=== PATIENT | male | born 1965 | race Caucasian/White ===

== ENCOUNTER 2018-11-13 23:51 | Inpatient (IN) | payer BC ==
[~2018-11-13] VITALS: Ht 170.2 cm; Wt 100.0 kg
--- NOTE | ~2018-11-13 | OP ---
PATIENT NAME: DANISH COOK MEDICAL RECORD: [id number] :63 LOCATION:D.M2 D.2128 ADMISSION DATE:11/14/18 SURGEON: DUNCAN PHILLIPS MD DATE OF OPERATION: 11/15/2018 PROCEDURES: 1. PTCA stent RCA. 2. Left heart catheterization. 3. Selective coronary angiography. 4. Left ventriculogram. INDICATION: Angina, coronary artery disease, non-Q-wave myocardial infarction, cardiomyopathy. PROCEDURE IN DETAIL: After informed consent was obtained and after a detailed description of the risks, benefits as well as alternative therapies, the patient elected to proceed with angiogram and angioplasty. The right femoral area was prepped and draped in normal sterile fashion. Right femoral artery was cannulated via modified Seldinger technique with placement of 6-Upper Sorbian sheath. All catheters exchanged through this sheath. FINDINGS: Left ventriculogram was performed in standard 30-degree REYES view, reveals global hypokinesis throughout all segments. Overall ejection fraction 25%. SELECTIVE CORONARY ANGIOGRAPHY: 1. Left main has no significant angiographic disease. 2. Left anterior descending has 80% stenosis in the mid vessel. This is followed by a 100% occlusion of the LAD. The diagonal has previously placed stent. This is widely patent. 3. Left circumflex has previously placed stents, these are widely patent; however, there is total occlusion of the circumflex after the previously placed stents. 4. Right coronary artery is by far his largest vessel, has 80% to 90% stenosis times 2 in the proximal and mid vessel. PTCA STENT OF THE RCA: Stents used were 3.5 x mm Integrity and 3.0 x 15 mm Integrity. Result was 0% residual stenosis. OVERALL IMPRESSION: Successful percutaneous transluminal coronary angioplasty stent of the right coronary artery going from 2 areas of greater than 80% initial stenosis to 0% residual. PLAN: PTCA stent of the LAD and circumflex in the near future. TRANSINT:[id number] Voice Confirmation ID: [id number] DOCUMENT ID: [id number] OPERATIVE REPORT [id number] DANISH COOK JEFFREY MD at 1457 CC: [id number] DICTATION DATE: 11/15/18 1027 CROWN BUFFER: 11/15/18 1242 DIS IN 11/15/18 [place] [id number]
--- NOTE | ~2018-11-13 | EC ---
PATIENT:DANISH COOK DATE OF SERVICE: 11/14/18 SEX: M MEDICAL RECORD: [id number] DATE OF : 63 LOCATION:D.M2 D.212 AGE OF PATIENT: 52 ADMISSION DATE: 11/14/18 REFERRING PHYSICIAN: INTERPRETING PHYSICIAN: DUNCAN PRITCHETT MD ECHOCARDIOGRAM REPORT ECHO CHARGES 4 ECHO COMPLETE Date: 11/14/18 CLINICAL DIAGNOSIS: IN ECHOCARDIOGRAPHIC MEASUREMENTS (adult normal given) AC root (d.<3.7cm) 3.4 cm LV Septum d (<1.2 cm> 1.5 cm Valve Excursion 2.0 cm LV Septum (systole) 2.2 cm Left Atria (s.<4.0cm> 4.5 cm LVPW d(<1.2cm) 1.4 cm RV (d.<2.3cm) 3.4 cm LVPW (sytole) 1.9 cm LV diastole(<5.6CM) 5.8 cm MV E-F(>70mm/sec) cm LV systole 3.9 cm LVOT Diameter 2.0 cm MV exc.(>10mm) cm Est.ejection fraction (50-75%) % DOPPLER: LVIT cm/sec A 27.0 cm/sec E 92.0 cm/sec LA cm/sec RVSP 64.0 mmHg LVOT 75.0 cm/sec AOP1/2T m/s Asc. Ao 125 cm/sec RVOT 52.0 cm/sec RA cm/sec PA 77.0 cm/sec AV Gradient Peak 6.3 mmHg AV Mean 2.7 mmHg AV Area 2.4 cm MV Gradient Peak 3.6 mmHg MV Mean 1.2 mmHg MV Area cm COMMENTS: Floor Molder: [facility] Attendant: 1 Dr. Pritchett TAPE# PACS Pericardial Effusion N DATE OF SERVICE: 11/14/2018 ROCEDURE: Echocardiogram. FINDINGS: 1. Left ventricular chamber size is mildly dilated. Left ventricular systolic function is significantly reduced, overall ejection fraction 30%. 2. Left atrium, right atrium, and right ventricle chamber sizes are as well mildly dilated. 3. Valvular structures have normal structure and motion. ECHOCARDIOGRAM REPORT [id number] DANISH COOK 4. Doppler interrogation reveals mild mitral regurgitation, moderate tricuspid regurgitation, no other valvular insufficiency or stenosis. Pulmonary systolic pressure is elevated estimated 64 mmHg. 5. No evidence of pericardial effusion or left ventricular thrombus. TRANSINT:[id number] Voice Confirmation ID: [id number] DOCUMENT ID: [id number] DUNCAN PRITCHETT MD at 1457 CC: [id number] DICTATION DATE: 11/15/18901 SCHOOL TRAFFIC GUARD: 11/15/18 1018 DIS IN 11/15/18 [place] [id number] [place] [address]
--- NOTE | ~2018-11-13 | HEMODYNAMI ---
PATIENT:DANISH COOK MEDICAL RECORD: [id number] : 63 LOCATION:D.MS Melvin2231 ADMISSION DATE: 11/14/18 Generatedon:11/15/201810:24 Patient name: DANISH COOK Patient #: [id number] SSN: : 1965 Date of study: 11/15/2018 Page: Of Hemodynamic Procedure Report Patient Data Patient Demographics Procedure consent was obtained First Name: DANISH Gender: Male Last Name: JOEY : 1965 Middle Initial: T Age: 52 year(s) Patient #: [id number] Race: Additional ID: [id number] Contact details [address]: [address] [place] [address] State: [place] City: [place] Zip code: [address] Past Medical History History of disease Date Diagnosis Comments CAD CHF Allergies: No known allergies Admission Admission Data Admission Date: 11/14/2018 Admission Time: 0:55 Admit Source: Emergency department Room #: D.2231 Procedure Procedure Types Cath Procedure Diagnostic Procedure C [facility] w/Coronaries PCI Procedure Coronary Stent Coronary Stent Initial Procedure Description Procedure Date Procedure Date: 11/15/2018 Procedure Start Time: 10:07 Procedure End Time: 10:23 Procedure Staff Name Function John Pritchett MD Performing Physician Rosibel Husain RT Monitor Dariusz Quiles RT Scrub Flavio Soria RN Nurse Procedure Data Cath Procedure Fluoroscopy Diagnostic fluoroscopy Total fluoroscopy Time: 3.2 time: 3.2 min min Diagnostic fluoroscopy Total fluoroscopy dose: 802 dose: 802 mGy mGy Contrast Material Contrast Material Type Amount (ml) Isovue 300 97 Entry Location Entry Primary Successful Side Size Upsize Upsize Entry Closure Succes sful Closure Location (Fr) 1 (Fr) 2 (Fr) Remarks Device Remarks Femoral Right 5 Fr 6 Fr Exoseal artery Short Estimated blood loss: 10 ml Diagnostic catheters Device Type Used For End Catheter Placement MULTIPACK Pigtail 5 Fr LV Angiography catheter MULTIPACK JL 4.0 5Fr Left Coronary catheter Angiography MULTIPACK 3DRC 5Fr Right Coronary catheter Angiography Procedure Complications No complications Procedure Medications Medication Administration Route Dosage Oxygen etCO2 Nasal cannula 2 l/min Heparin Flush Bag added to field 2 bags (1000units/500ml NS) 0.9% NaCl I.V. 100 ml/hr Lidocaine 2% added to field 20 Fentanyl I.V. 50 mcg Versed I.V. 1 mg Fentanyl I.V. 50 mcg Versed I.V. 1 mg Heparin Bolus I.V. 4000 units Plavix P.O. 75 mg Hemodynamics Rest Heart Rate: 82 (bpm) Snapshots Pre Cath Intra NCS Post Cath Vital Signs Time Heart Resp SPO2 etCO2 NIBP (mmHg) Rhythm Pain Sedation Rate (ipm) (%) (mmHg) Status Level (bpm) 10:01:20 79 17 96 37 150/105(124) NSR 0 (11) 10(A) , No pain 10:05:40 81 16 96 31 146/92(113) NSR 0 (11) 10(A) , No pain 10:09:58 84 17 94 0 140/102(117) NSR 0 (11) 9(A) , No pain 10:14:14 76 17 92 0 151/97(124) NSR 0 (11) 9(A) , No pain 10:18:30 85 17 91 15.1 146/101(124) NSR 0 (11) 9(A) , No pain 10:22:48 87 16 95 18.9 148/100(142) NSR 0 (11) 9(A) , No pain Medications Time Medication Route Dose Verified Delivered Reason Notes Effectiveness by by 9:59:37 Oxygen etCO2 2 John Muniz Per physician Nasal l/min Shreyas Soria RN cannula 9:59:46 Heparin Flush added 2 John Muniz used for Bag to bags Shreyas Soria RN procedure (1000units/500ml field NS) 9:59:54 0.9% NaCl I.V. 100 Johnsharri Muniz Per physician ml/hr Shreyas Soria RN 10:00:03 Lidocaine 2% added 20ml John Muniz used for to vial Shreyas Soria product safety and standards engineer field 10:06:43 Fentanyl I.V. 50 John Muniz for sedation mcg Shreyas Soria RN 10:06:49 Versed I.V. 1 mg John Muniz for sedation Shreyas Soria RN 10:15:16 Fentanyl I.V. 50 John Muniz for sedation mcg Shreyas Soria RN 10:15:21 Versed I.V. 1 mg John Muniz for sedation Shreyas Soria RN 10:16:54 Heparin Bolus I.V. 4000 John Muniz for units Shreyas Soria RN anticoagulation 10:22:20 Plavix P.O. 75 mg John Muniz for Shreyas Soria RN antiplatelet therapy Procedure Log Time Note 9:37:35 Informed consent obtained and on chart 9:37:38 Admit Source: Emergency department 9:37:52 Diagnostic Cath status Elective 9:37:53 Flavio Soria RN sent for patient. Start room use. 9:37:55 Time tracking: Call back (After hours or weekends) 9:37:59 Plan of Care:Hemodynamics will remain stable., Cardiac rhythm will remain stable., Comfort level will be maintained., Respiratory function will remain adequate., Patient/ family verbilizes understanding of procedure., Procedure tolerated without complication., Recovers from procedure without complications.. 9:50:41 Patient received from ICU to CCL 1 Alert and oriented. Tansferred to table in Supine position. 9:50:42 Warm blankets applied, and álvaro hugger turned on for patient comfort. 9:50:42 Correct patient and procedure confirmed by team. 9:50:43 ECG and BP/O2 sat monitors applied to patient. 9:50:44 Full Disclosure recording started 9:59:37 Oxygen 2 l/min etCO2 Nasal cannula was administered by Flavio Soria RN; Per physician; 9:59:46 Heparin Flush Bag (1000units/500ml NS) 2 bags added to field was administered by Flavio Soria RN; used for procedure; 9:59:54 0.9% NaCl 100 ml/hr I.V. was administered by Flavio Soria RN; Per physician; 10:00:03 Lidocaine 2% 20ml vial added to field was administered by Flavio Soria RN; used for procedure; 10:00:05 Vital chart was started 10:02:04 Rhythm: sinus rhythm 10:02:07 Baseline sample Acquired. 10:02:14 H&P Date Dictated: 11/15/2018 Within 30 days and on chart.. 10:02:16 Pre-procedure instructions explained to patient. 10:02:16 Pre-op teaching completed and patient verbalized understanding. 10:02:18 Family in patients room. 10:02:20 Patient NPO since Midnight. 10:02:26 Patient allergic to No known allergies 10:02:28 Is the patient allergic to Iodine/contrast media? No. 10:02:31 Is patient on blood thinner?Yes 10:02:33 ACC The patient was administered the following blood thiners within the last 24 hours: ACCPlavix 10:02:35 Patient diabetic? No. 10:02:39 Previous problem with sedation/anesthesia? No ? 10:02:40 Snore? Yes 10:02:41 Sleep apnea? No 10:02:42 Deviated septum? No 10:02:43 Opens mouth fully? Yes 10:02:43 Sticks out tongue? Yes 10:02:45 Airway obstruction? No ? 10:02:49 Dentures? Yes OUT 10:03:42 Pre procedure: right dorsailis pedis pulse 2+ Normal; easily identifiable; not easily obliterated 10:03:44 Patient pain scale 0/10 ?. 10:03:49 IV patent on arrival in right antecubital with 0.9% NaCl at [facility]. 10:03:51 Lab results completed and on chart. 10:03:58 Right groin area was prepped with chlora-prep and draped in sterile fashion 10:04:00 Alarms reviewed by R. N. 10:04:00 Sharps counted by scrub and verified by R.N. 10:04:03 Use device set Femoral Dx 10:04:04 ACIST Syringe (59506) opened to sterile field. 10:04:05 Bag Decanter (2002) opened to sterile field. 10:04:05 Medline Cath Pack ([id number]) opened to sterile field. 10:04:05 DIAGNOSTIC WIRE .035 260cm J wire (848485) opened to sterile field. 10:04:07 ACIST Hand Control (17705) opened to sterile field. 10:04:07 ACIST Manifold (57656) opened to sterile field. 10:04:08 DIAGNOSTIC Multipack 5Fr catheter set (QB3728) opened to sterile field. 10:04:08 Tegaderm 4 x 4 (1626W) opened to sterile field. 10:04:09 SHEATH 5FR Coy[place]osa (HMG873) opened to sterile field. 10:05:34 Final Timeout: patient, procedure, and site verified with staff and physician. All members of the team are in agreement. 10:05:38 Right groin site verified by team. 10:05:41 Physical assessment completed. ASA score P 2 - A patient with mild systemic disease as per John Pritchett MD. 10:05:44 Sedation plan: IV Moderate Sedation Medication:Versed, Fentanyl 10:06:43 Fentanyl 50 mcg I.V. was administered by Flavio Soria RN; for sedation; 10:06:49 Versed 1 mg I.V. was administered by Flavio Soria RN; for sedation; 10:07:36 Procedure started. 10:07:39 Local anesthetic to right femoral artery with Lidocaine 2% by John Pritchett MD.INITIAL ACCESS ONLY 10:08:44 A 5 Fr sheath was inserted into the Right Femoral artery 10:10:43 A MULTIPACK Pigtail 5 Fr catheter was advanced over the wire and used for LV Angiography. 10:10:48 LV gram done using REYES 10:10:55 EF : 25 % 10:11:01 Injector settings: Ml/sec: 10, Volume: 20, 10:11:03 Catheter removed. 10:11:11 A MULTIPACK JL 4.0 5Fr catheter was advanced over the wire and used for Left Coronary Angiography. 10:11:50 Use device set [facility] PCI 10:11:51 SHEATH 6FR [place] (SQN132) opened to sterile field. 10:11:56 INFLATOR Merit BasixCompak (TN6228) opened to sterile field. 10:11:58 CHOICE PT Extra Support 182cm wire ([id number]) opened to sterile field. 10:12:37 Catheter removed. 10:12:43 A MULTIPACK 3DRC 5Fr catheter was advanced over the wire and used for Right Coronary Angiography. 10:13:57 GUIDE 6FR HS II SH catheter ([id number]) opened to sterile field. 10:14:58 Sheath upsized to a 6 Fr Short. 10:15:16 Fentanyl 50 mcg I.V. was administered by Flavio Soria RN; for sedation; 10:15:16 6 Fr HS II RELAXED MOD SH guide catheter was inserted over the wire 10:15:21 Versed 1 mg I.V. was administered by Flavio Soria RN; for sedation; 10:15:48 CHOICE PT ES wire advanced. 10:16:54 Heparin Bolus 4000 units I.V. was administered by Flavio Soria RN; for anticoagulation; 10:17:44 Place stent Inflation Number: 1 A INTEGRITY RX 3.0 x 15 stent ([id number]) was prepped and advanced across the Mid RCA. The stent was deployed at 15 NICA for 0:03 (min:sec). 10:17:59 Stent catheter was removed intact over wire. 10:19:29 Inflate balloon Inflation number: 1 A INTEGRITY RX 3.5 x 15 stent ([id number]) was prepped and advanced across the Prox RCA, then inflated to 15 NICA for 0:07 (min:sec). 10:20:06 Stent catheter was removed intact over wire. 10:20:07 Wire removed. 10:20:08 Guide catheter removed. 10:20:15 Sheath removed intact; hemostasis achieved with Exoseal to the Right Femoral artery. 10:20:17 Procedure ended.(Physican Out) 10:20:44 Fluoroscopy time 03.20 minutes. 10:20:48 Fluoroscopy dose: 802 mGy 10:20:48 Flurop Dose total: 802 10:20:51 Contrast amount:Isovue 300 97ml. 10:20:52 Sharps counted by scrub and verified by R.N. 10:20:54 Insertion/operative site no bleeding no hematoma. 10:20:56 Post-op/insertion site Right Femoral artery dressed using a 4 x 4 and Tegaderm. 10:20:59 Post right femoral artery:stable, clean and dry 10:21:00 Post Procedure Pulses reassessed and unchanged 10:21:05 Post-procedure physical assessment completed. ASA score P 2 - A patient with mild systemic disease as per John Pritchett MD. 10:21:12 Post procedure rhythm: unchanged. 10:21:15 Estimated blood loss: 10 ml 10:21:16 Post procedure instruction explained to patient.Patient verbalizes understanding. 10:21:17 Patient needs reinforcement of post procedure teaching. 10:21:54 Procedure type changed to Cath procedure, Diagnostic procedure, LHC, LHC w/Coronaries, PCI procedure, Coronary Stent, Coronary Stent Initial 10:21:58 Procedure Complication : No complications 10:22:01 See physician's report for complete and final results. 10:22:10 EXOSEAL 6Fr (EX600) opened to sterile field. 10:22:20 Plavix 75 mg P.O. was administered by Flavio Soria RN; for antiplatelet therapy; 10:22:51 Procedure and supply charges have been captured, reviewed, submitted and are correct. 10:22:57 Vital chart was stopped 10::59 Report given to PCU. 10:23:01 Patient transfered to PCU with Stretcher. 10:23:09 Procedure ended. 10:23:09 Full Disclosure recording stopped 10:23:11 End room use (Document Last) Intervention Summary Intervention Notes Time ActionType Lesion and Equipment Action# Pressure Duration Attributes Used 10:17:44 Place stent Mid RCA INTEGRITY RX 1 15 00:03 3.0 x 15 stent ([id number]) 10:19:29 Inflate Prox RCA INTEGRITY RX 1 15 00:07 balloon 3.5 x 15 stent ([id number]) Device Usage Item Name Manufacture Quantity Catalog Number Hospital Part Current Mini mal Lot# / Charge Number Stock Stock Serial# Code ACIST Acist 1 38444 106310 369545 944186 20 Syringe Medical (36619) Systems Inc Bag Decanter Microtek 1 2001S 088525 26038 385919 5 (2001S) Medical Inc. Medline Cath Medline 1 [id number] 104101 24691 721941 5 Pack ([id number]) DIAGNOSTIC St Eulalio 1 383771 383794 658127 976751 30 WIRE .035 260cm J wire (488192) ACIST Hand Acist 1 71688 051165 510529 154926 5 Control Medical (37640) Systems Inc ACIST Acist 1 84502 808987 159774 696075 5 Manifold Medical (18425) Systems Inc DIAGNOSTIC Cardinal 1 VK7791 798896 56274 014377 30 Multipack Health 5Fr catheter set (YC6763) Tegaderm 4 x 3M 1 1626W 204133 606969 946456 5 4 (1626W) SHEATH 5FR Terumo 1 UCZ269 632450 351751 132513 5 [place] (EJF008) MULTIPACK Cardinal 1 771553 5 Pigtail 5 Fr Health catheter MULTIPACK JL Cardinal 1 123040 5 4.0 5Fr Health catheter SHEATH 6FR Terumo 1 PRM032 448278 346432 770822 40 [place] (IQQ168) INFLATOR Merit 1 PU5329 986524 553010 183876 15 Merit Medical BasixCompak (YH3260) CHOICE PT [place] 1 [id number] 742078 144537 545480 5 Extra Scientific Support 182cm wire ([id number]) MULTIPACK Cardinal 1 182867 5 3DRC 5Fr Health catheter GUIDE 6FR HS Medtronic 1 [id number] 841564 12031 391815 1 II SH catheter (AN9ENMUET) INTEGRITY RX Medtronic 1 [id number] 133784 426528 404957 5 [id number] 3.0 x 15 stent ([id number]) INTEGRITY RX Medtronic 1 [id number] 158578 908055 449846 5 [id number] 3.5 x 15 stent ([id number]) EXOSEAL 6Fr Cardinal 1 EX600 909470 286748 722398 10 (EX600) Health Signature Audit [place] Stage Time Signature Unsigned Intra-Procedure 11/15/2018 Rosibel 10:24:46 AM Counts RT(R) Signatures Monitor : Rosibel Signature : Counts RT Date : Time : [place] [address] [place] [address]
--- NOTE | ~2018-11-13 | MORECARE ---
CASE MANAGEMENT DISCHARGE SUMMARY PATIENT: DANISH COOK UNIT: [id number] ADM DATE: 11/14/18 AGE: 52 : 63 SEX: M ROOM/BED: D.5951 AUTHOR: KAREN QUIROZ PHYSICIAN: REFERRING PHYSICIAN: DUC DOMINGO MD DATE OF SERVICE: 11/16/18 Discharge Plan Patient Name: DANISH COOK [facility] [facility] 1965 Planned Disposition: Home Anticipated Discharge Date: 11/15/18 Discharge Date: 11/15/2018 Expected LOS: 1 Initial Reviewer: [email or web address] Initial Review Date: 11/16/2018 Generated: 11/16/18 12:23 pm Patient Name: DANISH COOK Page [id number] at 1123 All edits/amendments must be made on the electronic document DICTATION DATE: 11/16/18 112 WATERSHED MANAGER: ROSLYN 11/16/18 1123 RPT#: [id number] DC DATE:11/15/18 STATUS: DIS IN [facility] [address] [place] [address] END OF REPORT
--- NOTE | ~2018-11-13 | CN ---
PATIENT NAME:DANISH COOK MEDICAL RECORD: [id number] : 63 LOCATION:D.MS Melvin2231 ADMIT DATE: 11/14/18 ACCOUNT: [id number] CONSULTING PHYSICIAN: DUNCAN PHILLIPS MD REFERRING PHYSICIAN: DUC DOMINGO MD DATE OF CONSULTATION: 11/14/2018 DIAGNOSES: 1. Non-Q-wave myocardial infarction. 2. Coronary artery disease. 3. Previous PTCA stent. 4. Hypertension. 5. Hyperlipidemia. 6. Pulmonary edema, congestive heart failure. HISTORY OF PRESENT ILLNESS: This is a gentleman who presents with increased shortness of breath, dyspnea on exertion, and chest pain. He has a past history of coronary artery disease, PTCA stent in the distant past. His chest x-ray is compatible with pulmonary edema. He is not having any chest pain now. He is still having increased shortness of breath. PHYSICAL EXAMINATION: GENERAL APPEARANCE: Well-nourished, well-developed, appears stated age. Level of distress, comfortable. PSYCHIATRIC: Mental status, alert, normal affect. Orientation, oriented to time, place and person. EYES: Lids and conjunctiva, noninjected. No discharge, no pallor. ENT: Lips, teeth, gums, normal dentition. Oropharynx, no cyanosis, no pallor. NECK: Carotid arteries, bilateral normal upstroke, no bruits, no thrills. JUGULAR VEINS: No jugular venous pressure or distention. CERVICAL LYMPH NODES: Nontender, nonenlarged. THYROID: Not enlarged. Nontender. No nodules. LUNGS: Respiratory effort, unlabored. CHEST: Normal curvature. No thoracic deformity. No chest wall tenderness. Percussion, resonant. Auscultation, clear. No wheezes, no rales, no rhonchi. CARDIOVASCULAR: Precordial exam, nondisplaced. No heaves or pericardial thrills. Rate and rhythm, regular. Heart sounds, normal S1, normal S2. No S3, no gallop, no rub. Systolic murmur, not heard. Diastolic murmur, not heard. EXTREMITIES: No cyanosis, no edema. Peripheral pulses, full and equal in all extremities, except as noted. No bruits appreciated. ABDOMEN: Soft, nondistended. Normal aorta. No bruit. Nontender. No masses. Liver, nontender, no hepatomegaly. Spleen, nontender, no splenomegaly. MUSCULOSKELETAL: No joint tenderness. No joint swelling. No erythema. NEUROLOGICAL: Normal gait, normal strength, normal tone. SKIN: Warm and dry. OVERALL IMPRESSION: Non-Q-wave myocardial infarction with mild congestive heart failure. We will clear the heart failure with IV Lasix today and load him with Plavix, proceed with coronary angiography. Further care depends upon findings of the angiography. TRANSINT:[id number] Voice Confirmation ID: [id number] DOCUMENT ID: [id number] CONSULT REPORT [id number] TREAT,DUNCAN CHILDS MD at 0924 CC: [id number] DICTATION DATE: 11/14/1837 PROCESS CONTROL PROGRAMMER: 11/14/18 1310 ADM IN [place] [id number] [place] [id number]
[~2018-11-13 23:51] MED LIST: ASPIRIN EC81 M1 PO; K-DUR20 MEQ PO; LASIX20 MG PO; LISINOPRIL10 MG PO
[2018-11-14] VITALS (13 sets, daily range): BP systolic 104–178; BP diastolic 64–110; Ht 170.2 cm; Wt 100.0 kg
[2018-11-14 00:09] LABS: BASOPHILS 0.4 % (0-2); HEMATOCRIT 46.2 % (42.0-54.0); IMMATURE GRANULOCYTES 0.4 % (0-5); LYMPHOCYTES 16.3 % (15-50); MCHC 34.6 g/dL (31.0-37.0); MCV 89.5 fL (80.0-100.0); MEAN PLATELET VOLUME 10.3 fL (7.4-10.4); NEUTROPHILS 75.9 % (40-80); PLATELET COUNT 196 10x3/uL (130-400); RBC 5.16 10x6/uL (4.20-6.10); RDW 13.1 % (11.5-14.5); WBC 13.7 10x3/uL (4.8-10.8)
[2018-11-14 00:23] LABS: APTT 29.3 SECONDS (22.8-39.4); INR 1.25 (0.85-1.17); PROTIME 15.2 SECONDS (11.6-15.0)
[2018-11-14 00:24] LABS: ALBUMIN 3.6 g/dL (3.4-5.0); ALKALINE PHOSPHATASE 50 U/L (46-116); ALT (SGPT) 25 U/L (10-68); BILIRUBIN - TOTAL 0.76 mg/dL (0.2-1.3); CALC OSMOLALITY 282 mosm/kg (275-300); CARBON DIOXIDE 26.6 mmol/L (21.0-32.0); CHLORIDE - SERUM 102 mmol/L (98-107); CREATININE - SERUM 1.3 mg/dL (0.6-1.3); GLUCOSE 126 mg/dL (74-106); POTASSIUM - SERUM 3.8 mmol/L (3.5-5.1); PROTEIN - SERUM 8.1 g/dL (6.4-8.2); SODIUM 139 mmol/L (136-145); UREA NITROGEN 21 mg/dL (7-18); eGFR NON AFRICAN AMERICAN 61 mL/min (90-120)
[2018-11-14 00:43] LABS: CKMB 5.1 U/L (0.0-3.6); CREATINE KINASE 229 UL (21-232)
[2018-11-14 04:25] LABS: CKMB 5.4 U/L (0.0-3.6); CREATINE KINASE 222 UL (21-232)
[2018-11-14 04:26] LABS: TROPONIN-I 0.132 ng/mL (0.000-0.060)
[2018-11-14 08:21] LABS: CKMB 4.4 U/L (0.0-3.6); CREATINE KINASE 180 UL (21-232)
[2018-11-14 08:24] LABS: TROPONIN-I 0.102 ng/mL (0.000-0.060)
[2018-11-14 14:11] LABS: CKMB 3.7 U/L (0.0-3.6); CREATINE KINASE 156 UL (21-232)
[2018-11-15 01:23] VITALS: BP 112/64
[2018-11-15 05:14] VITALS: BP 133/68
[2018-11-15 07:36] LABS: BASOPHILS 0.6 % (0-2); EOSINOPHILS 2.9 % (0-7); HEMATOCRIT 48.9 % (42.0-54.0); HEMOGLOBIN 16.8 g/dL (13.5-17.5); IMMATURE GRANULOCYTES 0.4 % (0-5); LYMPHOCYTES 20.2 % (15-50); MCHC 34.4 g/dL (31.0-37.0); MCV 90.2 fL (80.0-100.0); MEAN PLATELET VOLUME 10.6 fL (7.4-10.4); NEUTROPHILS 69.9 % (40-80); PLATELET COUNT 192 10x3/uL (130-400); RBC 5.42 10x6/uL (4.20-6.10); RDW 13.6 % (11.5-14.5)
[2018-11-15 07:37] LABS: WBC 9.3 10x3/uL (4.8-10.8)
[2018-11-15 08:01] LABS: ANION GAP 15.1 mmol/L (8-16); CALCIUM 9.3 mg/dL (8.5-10.1); CARBON DIOXIDE 26.8 mmol/L (21.0-32.0); CREATININE - SERUM 1.1 mg/dL (0.6-1.3); POTASSIUM - SERUM 3.9 mmol/L (3.5-5.1)
[2018-11-15 09:04] VITALS: BP 116/79
[2018-11-15 11:21] VITALS: BP 128/86
[2018-11-15] MEDS ORDERED: PRAVACHOL20 MG PO (15:48)
[2018-11-15] MEDS ORDERED: PLAVIX75 MG PO (15:49)
[2018-11-15] MEDS ORDERED: METOPROLOL TART50 MG PO (15:49)
[2018-11-15 15:55] VITALS: BP 122/72
== END 2018-11-15 16:17 | disposition home or self-care (01) | DRG 248 ==
LOC: D.ER 23:51 → D.EDHOLD 11-14 00:55 → D.MS 11-14 01:26 → D.M2 11-15 10:36
PROVIDERS: Emergency Medicine; Internal Medicine Interventional Cardiology; Internal Medicine Nephrology
PROC: B2111ZZ Fluoroscopy of Multiple Coronary Arteries using Low Osmolar Contrast (ICD-10-PCS; 2018-11-15)
PROC: B2151ZZ Fluoroscopy of Left Heart using Low Osmolar Contrast (ICD-10-PCS; 2018-11-15)
PROC: 02703EZ Dilation of Coronary Artery, One Artery with Two Intraluminal Devices, Percutaneous Approach (ICD-10-PCS; principal; 2018-11-15 10:00)
PROC: 4A023N7 Measurement of Cardiac Sampling and Pressure, Left Heart, Percutaneous Approach (ICD-10-PCS; 2018-11-15 10:00)
DX: I21.4 Non-ST elevation (NSTEMI) myocardial infarction (principal); I50.21 Acute systolic (congestive) heart failure; N17.9 Acute kidney failure, unspecified; I42.9 Cardiomyopathy, unspecified; I25.10 Atherosclerotic heart disease of native coronary artery without angina pectoris; I11.0 Hypertensive heart disease with heart failure; R73.9 Hyperglycemia, unspecified; E78.5 Hyperlipidemia, unspecified

== ENCOUNTER 2018-11-18 08:42 | Outpatient (CLI) | payer BC ==
[~2018-11-18] VITALS: Ht 170.2 cm; Wt 101.8 kg
--- NOTE | ~2018-11-18 | HEMODYNAMI ---
PATIENT:DANISH COOK MEDICAL RECORD: [id number] : 63 LOCATION:[facility] ADMISSION DATE: 11/18/18 Generatedon:11/18/201810:33 Patient name: DANISH COOK Patient #: [id number] SSN: : 1965 Date of study: 11/18/2018 Page: Of Hemodynamic Procedure Report Patient Data Patient Demographics Procedure consent was obtained First Name: DANISH Gender: Male Last Name: JOEY : 1965 [facility] Initial: T Age: 52 year(s) Patient #: [id number] Race: Additional ID: [id number] Contact details [address]: [address] [place] [address] State: [place] City: [place] Zip code: [address] Past Medical History History of disease Date Diagnosis Comments CAD CHF Allergies: No known allergies Admission Admission Data Admission Date: 11/18/2018 Admission Time: 8:42 Procedure Procedure Types Cath Procedure PCI Procedure Coronary Stent Coronary Stent Initial Procedure Description Procedure Date Procedure Date: 11/18/2018 Procedure Start Time: 10:20 Procedure End Time: 10:31 Procedure Staff Name Function John Pritchett MD Performing Physician Araceli Pratt RT Monitor Delilah Trivedi RT Scrub Robi Winters RN Nurse Procedure Data Cath Procedure Fluoroscopy Diagnostic fluoroscopy Total fluoroscopy Time: 2.3 time: 2.3 min min Diagnostic fluoroscopy Total fluoroscopy dose: 736 dose: 736 mGy mGy Contrast Material Contrast Material Type Amount (ml) Isovue 300 83 Entry Location Entry Primary Successful Side Size Upsize Upsize Entry Closure Succes sful Closure Location (Fr) 1 (Fr) 2 (Fr) Remarks Device Remarks Femoral Right 6 Fr Exoseal artery Short Estimated blood loss: 5 ml Procedure Complications No complications Procedure Medications Medication Administration Route Dosage 0.9% NaCl I.V. 100 ml Oxygen etCO2 Nasal cannula 2 l/min Heparin Flush Bag added to field 2 bags (1000units/500ml NS) Lidocaine 2% added to field 20 Versed I.V. 1 mg Fentanyl I.V. 50 mcg Versed I.V. 1 mg Fentanyl I.V. 50 mcg Heparin Bolus I.V. 4000 units Integrilin (Bolus I.V. 9 ml 2mg/ml) Integrilin (Bolus wasted 1 ml 2mg/ml) Hemodynamics Rest Heart Rate: 92 (bpm) Snapshots Pre Cath Intra NCS Post Cath Vital Signs Time Heart Resp SPO2 etCO2 NIBP (mmHg) Rhythm Pain Sedation Rate (ipm) (%) (mmHg) Status Level (bpm) 9:54:04 103 12 93 0 160/108(127) NSR 0 (11) 10(A) , No pain 9:58:20 94 25 95 28.7 161/105(128) NSR 0 (11) 10(A) , No pain 10:02:35 86 11 98 32.4 145/102(113) NSR 0 (11) 10(A) , No pain 10:06:49 67 21 95 32.4 152/86(127) NSR 0 (11) 10(A) , No pain 10:11:02 90 21 92 29.4 136/113(126) NSR 0 (11) 10(A) , No pain 10:15:09 89 23 92 24.9 152/96(119) NSR 0 (11) 9(A) , No pain 10:19:23 91 24 89 27.9 132/105(112) NSR 0 (11) 9(A) , No pain 10:23:29 87 21 92 0 152/98(115) NSR 0 (11) 9(A) , No pain 10:27:43 87 17 93 13.5 153/89(120) NSR 0 (11) 9(A) , No pain 10:31:55 87 19 94 31.7 147/97(112) NSR 0 (11) 9(A) , No pain Medications Time Medication Route Dose Verified Delivered Reason Notes Effectiveness by by 9:54:58 0.9% NaCl I.V. 100 Robi Robi Per physician ml Vianey Winters RN RN 9:55:09 Oxygen etCO2 2 Robi Robi Per physician Nasal l/min Vianey Winters cannula RN RN 9:55:20 Heparin Flush added 2 Robi Roib used for Bag to bags Vianey Winters procedure (1000units/500ml field RN RN NS) 9:55:33 Lidocaine 2% added 20ml Robi Robi used for to ivan Winters procedure field RN RN 10:12:55 Versed I.V. 1 mg Robi Robi for sedation Vianey Winters RN RN 10:13:05 Fentanyl I.V. 50 Robi Robi for sedation mcg Vianey Winters RN RN 10:18:50 Versed I.V. 1 mg Robi Robi for sedation Vianey Winters RN RN 10:18:54 Fentanyl I.V. 50 Robi Robi for sedation mcg Vianey Winters RN RN 10:23:33 Heparin Bolus I.V. 4000 Robi Robi for units Vianey Winters anticoagulation RN RN 10:23:51 Integrilin I.V. 9 ml Robi Robi for (Bolus 2mg/ml) Vianey Winters antiplatelet RN RN therapy 10:24:00 Integrilin wasted 1ml Robi Robi to sharp's (Bolus 2mg/ml) Vianey Winters RN child development professor Log Time Note 9:33:02 Robi Winters RN sent for patient. Start room use. 9:33:03 Time tracking: Regular hours (M-F 7:00 - 5:00) 9:33:08 Plan of Care:Hemodynamics will remain stable., Cardiac rhythm will remain stable., Comfort level will be maintained., Respiratory function will remain adequate., Patient/ family verbilizes understanding of procedure., Procedure tolerated without complication., Recovers from procedure without complications.. 9:50:04 Patient received from Pre/Post Procedure Room to CCL 2 Alert and oriented. Tansferred to table in Supine position. 9:50:06 Warm blankets applied, and álvaro hugger turned on for patient comfort. 9:50:06 Correct patient and procedure confirmed by team. 9:50:08 Signed procedure consent form obtained from patient. 9:50:08 ECG and BP/O2 sat monitors applied to patient. 9:50:28 Pre-procedure instructions explained to patient. 9:50:28 Pre-op teaching completed and patient verbalized understanding. 9:50:31 Family in patients room. 9:50:33 Patient NPO since Midnight. 9:51:04 Patient allergic to No known allergies 9:51:09 Is patient on blood thinner?Yes 9:51:19 PRE LOADED ON PLAVIX TODAY 9:51:20 Patient diabetic? No. 9:51:24 Previous problem with sedation/anesthesia? No ? 9:51:25 Snore? Yes 9:51:27 Sleep apnea? Yes 9:51:28 Deviated septum? No 9:51:32 Opens mouth fully? Yes 9:51:34 Sticks out tongue? Yes 9:51:35 Airway obstruction? No ? 9:51:37 Dentures? No ? 9:51:59 Pre procedure: right dorsailis pedis pulse 2+ Normal; easily identifiable; not easily obliterated 9:52:02 Patient pain scale 0/10 ?. 9:52:07 IV patent on arrival in left hand with 0.9% NaCl at [facility]. 9:52:09 Lab results completed and on chart. 9:52:12 Right groin area was prepped with chlora-prep and draped in sterile fashion 9:52:13 Alarms reviewed by R. N. 9:52:14 Sharps counted by scrub and verified by R.N. 9:52:17 Use device set CATH PACK 9:52:18 ACIST Syringe (06511) opened to sterile field. 9:52:18 ACIST Hand Control (84815) opened to sterile field. 9:52:19 ACIST Manifold (29572) opened to sterile field. 9:52:19 Medline Cath Pack ([id number]) opened to sterile field. 9:52:19 Bag Decanter (2002S) opened to sterile field. 9:52:20 DIAGNOSTIC WIRE .035 260cm J wire (319730) opened to sterile field. 9:52:40 SHEATH 6FR Hinckley (CUP472) opened to sterile field. 9:52:40 INFLATOR Merit BasixCompak (TX1545) opened to sterile field. 9:52:41 CHOICE PT Extra Support 182cm wire ([id number]) opened to sterile field. 9:52:59 Vital chart was started 9:53:07 Baseline sample Acquired. 9:53:12 Rhythm: sinus rhythm 9:53:13 Full Disclosure recording started 9:53:20 H&P Date Dictated: 11/18/2018 New H&P dictated by physician.. 9:54:58 0.9% NaCl 100 ml I.V. was administered by Robi Winters RN; Per physician; 9:55:09 Oxygen 2 l/min etCO2 Nasal cannula was administered by Robi Winters RN; Per physician; 9:55:20 Heparin Flush Bag (1000units/500ml NS) 2 bags added to field was administered by Robi Winters RN; used for procedure; 9:55:33 Lidocaine 2% 20ml vial added to field was administered by Robi Winters RN; used for procedure; 10::28 Physician arrived 10:: --------ALL STOP TIME OUT------ 10::29 Final Timeout: patient, procedure, and site verified with staff and physician. All members of the team are in agreement. 10:12:32 Right groin site verified by team. 10:12:34 Physical assessment completed. ASA score P 2 - A patient with mild systemic disease as per John Pritchett MD. 10:12:38 Sedation plan: IV Moderate Sedation Medication:Versed, Fentanyl 10:12:55 Versed 1 mg I.V. was administered by Roib Winters RN; for sedation; 10:12:55 Use device set CATH PACK 10:12:56 ACIST Syringe (43316) opened to sterile field. 10:12:57 ACIST Hand Control (41854) opened to sterile field. 10:12:58 ACIST Manifold (80207) opened to sterile field. 10:12:58 Medline Cath Pack ([id number]) opened to sterile field. 10:12:59 Bag Decanter (2002S) opened to sterile field. 10:12:59 DIAGNOSTIC WIRE .035 260cm J wire (353208) opened to sterile field. 10:13:05 Fentanyl 50 mcg I.V. was administered by Robi Winters RN; for sedation; 10:13:15 INFLATOR Merit BasixCompak (KU5001) opened to sterile field. 10:13:15 CHOICE PT Extra Support 182cm wire ([id number]) opened to sterile field. 10:13:17 SHEATH 6FR Hinckley (VWZ425) opened to sterile field. 10:17:20 Zero performed for pressure channel P1 10:18:50 Versed 1 mg I.V. was administered by Robi Winters RN; for sedation; 10:18:54 Fentanyl 50 mcg I.V. was administered by Robi Winters RN; for sedation; 10:20:25 Procedure started. 10:20:29 Local anesthetic to right femoral artery with Lidocaine 2% by John Pritchett MD.INITIAL ACCESS ONLY 10:20:37 A 6 Fr Short sheath was inserted into the Right Femoral artery 10:21:36 GUIDE 6FR XBLAD 4.0 catheter ([id number]) opened to sterile field. 10:21:42 6 Fr XBLAD 4 guide catheter was inserted over the wire 10::39 LCA angiography performed. 10::44 Injector settings: Ml/sec: 3, Volume: 6, 10:23:12 CHOICE PT wire advanced. 10:23:33 Heparin Bolus 4000 units I.V. was administered by Robi Winters RN; for anticoagulation; 10:23:46 Wire advanced across lesion. 10:23:51 Integrilin (Bolus 2mg/ml) 9 ml I.V. was administered by Robi Winters RN; for antiplatelet therapy; 10:24:00 Integrilin (Bolus 2mg/ml) 1ml wasted was administered by Robi Winters RN; to sharp's; 10:24:29 Wire removed. 10:24:59 CHOICE PT Extra Support J 300cm guide wire ([id number]) opened to sterile field. 10:27:12 Place stent Inflation Number: 1 A INTEGRITY OTW 2.75 X 26 stent ([id number]) was prepped and advanced across the Mid LAD. The stent was deployed at 13 NICA for 0:10 (min:sec). 10:29:40 Stent catheter was removed intact over wire. 10:29:41 Wire removed. 10:29:41 Guide catheter removed. 10:29:50 EXOSEAL 6Fr (EX600) opened to sterile field. 10:29:59 Sheath removed intact; hemostasis achieved with Exoseal to the Right Femoral artery. 10:30:01 Procedure ended.(Physican Out) 10:30:33 Fluoroscopy time 02.30 minutes. 10:30:37 Fluoroscopy dose: 736 mGy 10:30:37 Flurop Dose total: 736 10:30:41 Contrast amount:Isovue 300 83ml. 10:30:42 Sharps counted by scrub and verified by R.N. 10:30:43 Insertion/operative site no bleeding no hematoma. 10:30:46 Post-op/insertion site Right Femoral artery dressed using a 4 x 4 and Tegaderm. 10:30:48 Post right femoral artery:stable 10:30:49 Post Procedure Pulses reassessed and unchanged 10:30:53 Post procedure rhythm: unchanged. 10:30:55 Estimated blood loss: 5 ml 10:30:57 Post procedure instruction explained to patient.Patient verbalizes understanding. 10:30:57 Patient needs reinforcement of post procedure teaching. 10:31:15 Procedure type changed to Cath procedure, PCI procedure, Coronary Stent, Coronary Stent Initial 10:31:16 Procedure and supply charges have been captured, reviewed, submitted and are correct. 10:31:20 Procedure Complication : No complications 10:31:24 Vital chart was stopped 10:31:26 See physician's report for complete and final results. 10:31:38 Report given to Pre/Post Procedure Room. 10:31:41 Patient transfered to Pre/Post Procedure Room with Stretcher. 10:31:44 Procedure ended. 10:31:44 Full Disclosure recording stopped 10:31:50 ACC-PCI Only Patient was given prescriptions, or instructed by John Pritchett MD to start/continue the following medications upon discharge: Plavix 10:31:51 End room use (Document Last) Intervention Summary Intervention Notes Time ActionType Lesion and Equipment Action# Pressure Duration Attributes Used 10:27:12 Place stent Mid LAD INTEGRITY 1 13 00:10 OTW 2.75 X 26 stent ([id number]) Device Usage Item Name Manufacture Quantity Catalog Number Hospital Part Current Minim al Lot# / Charge Number Stock Stock Serial# Code ACIST Acist 2 64003 728353 643664 436631 20 Syringe Medical (03878) Systems Inc ACIST Hand Acist 2 00350 451137 847564 936137 5 Control Medical (93642) Systems Inc ACIST Acist 2 12075 393588 972059 158877 5 Manifold Medical (64265) Systems Inc Medline Medline 2 [id number] 785841 10294 484013 5 Cath Pack ([id number]) Bag Microtek 2 2001S 231616 67813 376416 5 Decanter Medical Inc. () DIAGNOSTIC St Eulal[place] 2 366614 160888 829764 315582 30 WIRE .035 260cm J wire (303668) SHEATH 6FR Terumo 2 SDI878 199176 553936 169648 40 Hinckley (HNE327) INFLATOR Merit 2 JS6450 424497 057793 950605 15 Merit Medical BasixCompak (MN7404) CHOICE PT [place] 2 [id number] 807352 588782 191937 5 Extra Scientific Support 182cm wire (4537882R7) GUIDE 6FR Cardinal 1 [id number] 119755 020224 939250 3 XBLAD 4.0 Health catheter (76415297) CHOICE PT [place] 1 [id number] 250676 810948 174928 5 Extra Scientific Support J 300cm guide wire (7509587W4) INTEGRITY Medtronic 1 [id number] 735024 777821 8 [id number] OTW 2.75 X 26 stent ([id number]) EXOSEAL 6Fr Cardinal 1 EX600 595968 777695 442879 10 (EX600) Health Signature Audit [place] Stage Time Signature Unsigned Intra-Procedure 11/18/2018 Delilah Farooq 10:33:53 AM RT(R) Signatures Monitor : Araceli Pratt Signature : RT Date : Time : [facility] [address] [place] [address]
[~2018-11-18 08:42] MED LIST changes: +METOPROLOL TART50 MG PO; +PLAVIX75 MG PO; +PRAVACHOL20 MG PO
[2018-11-18 09:19] VITALS: BP 137/74; Ht 170.2 cm; Wt 101.8 kg
[2018-11-18 09:29] LABS: BASOPHILS 0.7 % (0-2); EOSINOPHILS 2.6 % (0-7); HEMATOCRIT 46.8 % (42.0-54.0); IMMATURE GRANULOCYTES 0.2 % (0-5); LYMPHOCYTES 17.2 % (15-50); MCHC 34.2 g/dL (31.0-37.0); MCV 90.7 fL (80.0-100.0); MEAN PLATELET VOLUME 10.2 fL (7.4-10.4); MONOCYTES 7.2 % (2-11); NEUTROPHILS 72.1 % (40-80); PLATELET COUNT 178 10x3/uL (130-400); RBC 5.16 10x6/uL (4.20-6.10); RDW 13.3 % (11.5-14.5); WBC 9.2 10x3/uL (4.8-10.8)
[2018-11-18 09:36] LABS: CALC OSMOLALITY 278 mosm/kg (275-300); CALCIUM 8.8 mg/dL (8.5-10.1); CARBON DIOXIDE 24.3 mmol/L (21.0-32.0); CHLORIDE - SERUM 103 mmol/L (98-107); GLUCOSE 103 mg/dL (74-106); POTASSIUM - SERUM 4.3 mmol/L (3.5-5.1); SODIUM 138 mmol/L (136-145); UREA NITROGEN 20 mg/dL (7-18); eGFR NON AFRICAN AMERICAN 83 mL/min (90-120)
--- NOTE | 2018-11-19 14:57 | HP ---
PATIENT: DANISH COOK MEDICAL RECORD: [id number] ACCOUNT: [id number] LOCATION:[facility] : 63 ADMISSION DATE: 11/18/18 PCP: MADELINE MCARTHUR MD HISTORY AND PHYSICAL EXAMINATION ADMITTING DIAGNOSES: 1. Angina. 2. Coronary artery disease. 3. Hypertension. 4. Hyperlipidemia. 5. Recent PTCA stent RCA with concomitant disease of LAD and circumflex. HISTORY OF PRESENT ILLNESS: This is a gentleman who presents with anginal symptomatology, found to have 3-vessel coronary artery disease, underwent successful PTCA stent of the RCA. He is now brought back for PTCA stent of LAD and circumflex. PHYSICAL EXAMINATION: GENERAL APPEARANCE: Well-nourished, well-developed, appears stated age. Level of distress, comfortable. PSYCHIATRIC: Mental status, alert, normal affect. Orientation, oriented to time, place and person. EYES: Lids and conjunctiva, noninjected. No discharge, no pallor. ENT: Lips, teeth, gums, normal dentition. Oropharynx, no cyanosis, no pallor. NECK: Carotid arteries, bilateral normal upstroke, no bruits, no thrills. JUGULAR VEINS: No jugular venous pressure or distention. CERVICAL LYMPH NODES: Nontender, nonenlarged. THYROID: Not enlarged. Nontender. No nodules. LUNGS: Respiratory effort, unlabored. CHEST: Normal curvature. No thoracic deformity. No chest wall tenderness. Percussion, resonant. Auscultation, clear. No wheezes, no rales, no rhonchi. CARDIOVASCULAR: Precordial exam, nondisplaced. No heaves or pericardial thrills. Rate and rhythm, regular. Heart sounds, normal S1, normal S2. No S3, no gallop, no rub. Systolic murmur, not heard. Diastolic murmur, not heard. EXTREMITIES: No cyanosis, no edema. Peripheral pulses, full and equal in all extremities, except as noted. No bruits appreciated. ABDOMEN: Soft, nondistended. Normal aorta. No bruit. Nontender. No masses. Liver, nontender, no hepatomegaly. Spleen, nontender, no splenomegaly. MUSCULOSKELETAL: No joint tenderness. No joint swelling. No erythema. NEUROLOGICAL: Normal gait, normal strength, normal tone. SKIN: Warm and dry. OVERALL IMPRESSION: Anginal symptomatology with significant disease of LAD and circumflex. We will proceed with transcatheter revascularization of these territories. TRANSINT:[id number] Voice Confirmation ID: [id number] DOCUMENT ID: [id number] HISTORY AND PHYSICAL [id number] TREAT,DUNCAN CHILDS MD at 1457 CC: [id number] DICTATION DATE: 11/18/18 1019 POKER MACHINE ATTENDANT: 11/18/18 1233 DEP CLI 11/18/18 [id number] [place] [address]
== END 2018-11-18 14:30 | disposition home or self-care (01) ==
LOC: D.CATH 08:42
PROVIDERS: Internal Medicine Interventional Cardiology
DX: I25.119 Atherosclerotic heart disease of native coronary artery with unspecified angina pectoris (principal); I10 Essential (primary) hypertension; E78.5 Hyperlipidemia, unspecified; Z01.812 Encounter for preprocedural laboratory examination